=== PATIENT | male | born 1970 | race African-American/Black ===

== ENCOUNTER 2019-04-09 09:03 | Outpatient (CLI) | payer OTHER | END 2019-04-09 20:14 | disposition home or self-care (01) | LOC: US 09:03 | DX: L02.411 Cutaneous abscess of right axilla (principal) ==

== ENCOUNTER 2019-04-15 09:39 | Outpatient (CLI) | payer OTHER | END 2019-04-15 19:27 | disposition home or self-care (01) | LOC: RAD 09:39 | DX: R59.0 Localized enlarged lymph nodes (principal) ==

== ENCOUNTER 2019-06-29 14:46 | Outpatient (CLI) | payer OTHER | END 2019-06-29 19:37 | disposition home or self-care (01) | LOC: RAD 14:46 | DX: S91.332A Puncture wound without foreign body, left foot, initial encounter (principal) ==

== ENCOUNTER 2023-01-28 08:56 | Outpatient (CLI) | payer OTHER | END 2023-01-28 20:06 | disposition home or self-care (01) | LOC: CT 08:56 | PROVIDERS: ATTEND Nurse Practitioner Family | DX: H70.892 Other mastoiditis and related conditions, left ear (principal) ==